=== PATIENT | male | born 1965 | race African-American/Black ===

== ENCOUNTER 2016-11-03 13:09 | Inpatient (IN) | payer OTHER ==
[2016-11-03 14:22] VITALS: BMI 23.6
--- NOTE | 2016-11-03 15:18 | HP ---
CIWA Score - CIWA Score Nausea/Vomitin Muscle Tremors: 3 Anxiety: 3 Agitation: 3 Paroxysmal Sweats: 2 Orientation: 0-Oriented Tacttile Disturbances: 2-Mild Itch/Numbness/Burn Auditory Disturbances: 2-Mild Harshness/Frighten Visual Disturbances: 2-Mild Sensitivity Headache: 2-Mild CIWA-Ar Total Score: 22 Admission ROS BHS - HPI Chief Complaint: katherine here to stop drinking alcohol,cocaine and marijuana Allergies/Adverse Reactions: Allergies Allergy/AdvReac Type Severity Reaction Status Date / Time No Known Allergies Allergy Verified 11/03/16 15:18 History of Present Illness: this 50 years old male with alcohol,cocaine and marijuana dependence,seeking detox,last tretment [address] [facility] syncope alcohol related black pigmented mole of right leg for 1 year nicotine dependence longest period of sobriety 2 years Exam Limitations: No Limitations - Ebola screening Have you traveled outside of the country in the last 21 days: No Have you had contact with anyone from an Ebola affected area: No Have you been sick,other than usual withdrawal symptoms: No Do you have a fever: No - Review of Systems Constitutional: Loss of Appetite, Malaise, Night Sweats, Changes in sleep, Weakness, Unintentional Wgt. Loss EENT: reports: Nose Congestion Respiratory: reports: No Symptoms reported Cardiac: reports: Palpitations GI: reports: Diarrhea, Nausea, Vomiting, Abdominal cramping : reports: No Symptoms Reported Musculoskeletal: reports: Back Pain, Muscle Pain Integumentary: reports: Dryness Neuro: reports: Tremors Endocrine: reports: No Symptoms Reported Hematology: reports: No Symptoms Reported Psychiatric: reports: No Sypmtoms Reported, Judgement Intact, Mood/Affect Appropiate, Orientated x3 Patient History - Patient Medical History Hx Anemia: No Hx Asthma: No Hx Chronic Obstructive Pulmonary Disease (COPD): No Hx Cancer: No Hx Cardiac Disorders: No Hx Congestive Heart Failure: No Hx Hypertension: No Hx Hypercholesterolemia: No Hx Pacemaker: No HX Cerebrovascular Accident: No Hx Seizures: No Hx Dementia: No Hx Diabetes: No Hx Gastrointestinal Disorders: No Hx Liver Disease: No Hx Genitourinary Disorders: No Hx Sexually Transmitted Disorders: No Hx Renal Disease (ESRD): No Hx Thyroid Disease: No Hx Human Immunodeficiency Virus (HIV): No (last 05/15 negative) Hx Hepatitis C: No Hx Depression: No Hx Suicide Attempt: No Hx Bipolar Disorder: No Hx Schizophrenia: No Other Medical History: no suicidal,o homicidal - Patient Surgical History Past Surgical History: No - PPD History Previous Implant?: Yes Documented Results: Negative w/o proof Implanted On Prior R Admission?: No PPD to be Administered?: Yes - Smoking Cessation Smoking history: Current every day smoker Aproximately how many cigarettes per day: 6 Hx Chewing Tobacco Use: No Initiated information on smoking cessation: Yes 'Breaking Loose' booklet given: 11/03/16 - Substance & Tx. History Hx Alcohol Use: Yes Hx Substance Use: Yes Substance Use Type: Alcohol, Cocaine, Marijuana Hx Substance Use Treatment: Yes ([facility]) - Substances Abused Alcohol Route: Oral Frequency: Daily Amount used: 1/2 pint of phillip/3 of 16 ozs of beer Age of first use: 21 Date of Last Use: 11/03/16 Cocaine Route: Smoking Frequency: Daily Amount used: 100$ Age of first use: 18 Date of Last Use: 11/02/16 Marijuana/Hashish Route: Smoking Frequency: Daily Amount used: 100$ Age of first use: 10 Date of Last Use: 11/03/16 Family Disease History - Family Disease History Family History: Denies Admission Physical Exam S - Vital Signs Vital Signs: Vital Signs - 24 hr 11/03/16 14:17 Temperature 96.4 F L Pulse Rate 79 Respiratory 20 Rate Blood Pressure 124/68 - Physical General Appearance: Yes: Moderate Distress, Irritable, Sweating, Anxious HEENTM: Yes: Hearing grossly Normal, Normal ENT Inspection, Pharynx Normal Respiratory: Yes: Lungs Clear, No Respiratory Distress Neck: Yes: Within Normal Limits, Supple, Trachea in good position Breast: Yes: Within Normal Limits Cardiology: Yes: Within Normal Limits, Regular Rhythm, Regular Rate, S1, S2 Abdominal: Yes: Within Normal Limits, Normal Bowel Sounds, Non Tender, Soft Genitourinary: Yes: Within Normal Limits Back: Yes: Muscle Spasm Musculoskeletal: Yes: full range of Motion, Back pain, Muscle Pain Extremities: Yes: Within Normal Limits, Normal Range of Motion, Tremors Neurological: Yes: biomedical repair technician II-XII NML intact, Fully Oriented, Alert, Motor Strength 5/5 Integumentary: Yes: Dry, Other (tinea pedis) Lymphatic: Yes: Within Normal Limits - Diagnostic (1) Alcohol dependence with uncomplicated withdrawal Current Visit: Yes Status: Acute (2) Cocaine dependence Current Visit: Yes Status: Acute (3) Cannabis dependence Current Visit: Yes Status: Acute (4) Weight loss Current Visit: Yes Status: Acute (5) Syncope Current Visit: Yes Status: Acute (6) Nicotine dependence Current Visit: Yes Status: Acute (7) Tinea pedis Current Visit: Yes Status: Acute Cleared for Admission [facility] - Detox or Rehab [facility] Level of Care: Medically Managed Detox Regimen/Protocol: Librium [facility] Breath Alcohol Content Breath Alcohol Content: 0 Urine Drug Screen - Results Drug Screen Negative: No Urine Drug Screen Results: THC-Marijuana, BREE-Cocaine
[2016-11-03] MEDS ORDERED: MAG HYDROX/AL HYDROX/SIMETH 30 ML UNIT-DOSE CUP PO PRN (15:34)
[2016-11-03] MEDS ORDERED: IBUPROFEN 400 MG TABLET (FP) PO PRN (15:34)
[2016-11-03] MEDS ORDERED: P-EPHED 60MG/TRIPROLIDI 2.5MG TABLET PO PRN (15:34)
[2016-11-03] MEDS ORDERED: MAGNESIUM HYDROX 2400MG/30ML ORAL SUSPENSION 30 ML CUP PO PRN (15:34)
[2016-11-03] MEDS ORDERED: ACETAMINOPHEN 325 MG TABLET (FP) PO PRN (15:34)
[2016-11-03] MEDS ORDERED: hydrOXYzine PAMOATE 50 MG CAPSULE (FP) PO PRN (15:34)
[2016-11-03] MEDS ORDERED: MENTHOL/PHENOL 1 EACH UD MM PRN (15:34)
[2016-11-03] MEDS ORDERED: LOPERAMIDE HCL 2 MG CAPSULE PO PRN (15:34)
[2016-11-03] MEDS ORDERED: chlordiazePOXIDE HCL 25 MG CAPSULE PO PRN (15:34)
[2016-11-03] MEDS ORDERED: guaiFENesin/D-METHORPHAN HB 10 ML UNIT-DOSE CUPS PO PRN (15:34)
[2016-11-03] MEDS ORDERED: NICOTINE POLACRILEX 2 MG GUM BUC PRN (15:34)
[2016-11-03] MEDS ORDERED: MAGNESIUM CITRATE 300 ML BOTTLE PO PRN (15:34)
[2016-11-03] MEDS ORDERED: chlordiazePOXIDE HCL 25 MG CAPSULE PO ONE (15:51)
[2016-11-03] MEDS: NICOTINE 21 MG/24 HOURS TOPICAL PATCH TD SCH (16:48)
[2016-11-03 17:26] LABS: URINE APPEARANCE CLEAR; URINE BILIRUBIN NEGATIVE (NEGATIVE); URINE BLOOD NEGATIVE (NEGATIVE); URINE COLOR YELLOW; URINE GLUCOSE (UA) NEGATIVE (NEGATIVE); URINE KETONE TRACE (NEGATIVE); URINE LEUK ESTERASE NEGATIVE (NEGATIVE); URINE NITRITE NEGATIVE (NEGATIVE); URINE PROTEIN NEGATIVE (NEGATIVE)
[2016-11-03] MEDS: chlordiazePOXIDE HCL 25 MG CAPSULE PO SCH ×2 (17:33→22:42)
[2016-11-03] MEDS: THIAMINE HCL 100 MG TABLET (FP) PO SCH (22:42)
[2016-11-04] MEDS: chlordiazePOXIDE HCL 25 MG CAPSULE PO SCH ×5 (05:36→22:03)
[2016-11-04 10:00] LABS: MCH 29.4 pg (25.7-33.7); MEAN CELL VOLUME 91.8 fl (80-96); MEAN PLT VOLUME 9.1 fl (7.5-11.1); PLATELET COUNT 265 K/MM3 (134-434); WHITE BLOOD COUNT 7.7 K/mm3 (4.0-10.0)
[2016-11-04 10:07] LABS: ALBUMIN 3.7 g/dl (3.4-5.0); ANION GAP 6 (8-16); CALCIUM 9.4 mg/dL (8.5-10.1); CO2 29 mmol/L (21-32); GLUCOSE,RANDOM 76 mg/dL (74-106); SGOT/AST 17 U/L (15-37); SGPT/ALT 20 U/L (12-78)
[2016-11-04] MEDS: PRENATAL VITAMINS W/ FOLIC ACID TABLET (FP) PO SCH (10:26)
[2016-11-04] MEDS: NICOTINE 21 MG/24 HOURS TOPICAL PATCH TD SCH (10:26)
[2016-11-04 10:28] LABS: ALK PHOS 59 U/L (45-117); BILIRUBIN,TOTAL 0.3 mg/dL (0.2-1.0); CREATININE 1.5 mg/dL (0.7-1.3); TOT PROT 7.2 g/dl (6.4-8.2)
[2016-11-04 10:48] LABS: HIV 1 & 2 AB NEGATIVE; HIV 1 AGp24 NEGATIVE
--- NOTE | 2016-11-04 11:41 | PN ---
[facility] CIWA - CIWA Score Nausea/Vomitin-No Nausea/No Vomiting Muscle Tremors: 4-Moderate,w/Arms Extend Anxiety: 4-Mod. Anxious/Guarded Agitation: 4-Moderately Restless Paroxysmal Sweats: 1-Minimal Palms Moist Orientation: 0-Oriented Tacttile Disturbances: 3-Moderate Itch/Numb/Burn Auditory Disturbances: 0-None Visual Disturbances: 0-None Headache: 0-None Present CIWA-Ar Total Score: 16 BHS Progress Note (SOAP) Subjective: DECREASED ANXIETY,SWEATS,TREMORS. Objective: 11/04/16 11:40 Vital Signs Temperature 97.3 F L 11/04/16 09:32 Pulse Rate 65 11/04/16 09:32 Respiratory Rate 18 11/04/16 09:32 Blood Pressure 125/82 11/04/16 09:32 O2 Sat by Pulse Oximetry (%) Laboratory Last Values WBC 7.7 K/mm3 (4.0-10.0) 11/04/16 07:40 RBC 4.14 M/mm3 (4.00-5.60) 11/04/16 07:40 Hgb 12.2 GM/dL (11.7-16.9) 11/04/16 07:40 Hct 38.0 % (35.4-49) 11/04/16 07:40 MCV 91.8 fl (80-96) 11/04/16 07:40 MCH 29.4 pg (25.7-33.7) 11/04/16 07:40 MCHC 32.0 g/dl (32.0-35.9) 11/04/16 07:40 RDW 14.0 % (11.9-15.9) 11/04/16 07:40 Plt Count 265 K/MM3 (134-434) 11/04/16 07:40 MPV 9.1 fl (7.5-11.1) 11/04/16 07:40 Sodium 142 mmol/L (136-145) 11/04/16 07:40 Potassium 4.2 mmol/L (3.5-5.1) 11/04/16 07:40 Chloride 107 mmol/L (98-107) 11/04/16 07:40 Carbon Dioxide 29 mmol/L (21-32) 11/04/16 07:40 Anion Gap 6 (8-16) L 11/04/16 07:40 BUN 17 mg/dL (7-18) 11/04/16 07:40 Creatinine 1.5 mg/dL (0.7-1.3) H 11/04/16 07:40 Creat Clearance w eGFR 49.74 (>60) 11/04/16 07:40 Random Glucose 76 mg/dL (74-106) 11/04/16 07:40 Calcium 9.4 mg/dL (8.5-10.1) 11/04/16 07:40 Total Bilirubin 0.3 mg/dL (0.2-1.0) 11/04/16 07:40 AST 17 U/L (15-37) 11/04/16 07:40 ALT 20 U/L (12-78) 11/04/16 07:40 Alkaline Phosphatase 59 U/L (45-117) 11/04/16 07:40 Total Protein 7.2 g/dl (6.4-8.2) 11/04/16 07:40 Albumin 3.7 g/dl (3.4-5.0) 11/04/16 07:40 Urine Color Yellow 11/03/16 17:06 Urine Appearance Clear 11/03/16 17:06 Urine pH 5.0 (5.0-8.0) 11/03/16 17:06 Ur Specific [place] 1.025 (1.005-1.025) 11/03/16 17:06 Urine Protein Negative (NEGATIVE) 11/03/16 17:06 Urine Glucose (UA) Negative (NEGATIVE) 11/03/16 17:06 Urine Ketones Trace (NEGATIVE) H 11/03/16 17:06 Urine Blood Negative (NEGATIVE) 11/03/16 17:06 Urine Nitrite Negative (NEGATIVE) 11/03/16 17:06 Urine Bilirubin Negative (NEGATIVE) 11/03/16 17:06 Urine Urobilinogen 2.0 mg/dL (0.2-1.0) 11/03/16 17:06 Ur Leukocyte Esterase Negative (NEGATIVE) 11/03/16 17:06 RPR Titer Nonreactive (NONREACTIVE) 11/04/16 07:40 HIV 1&2 Antibody Screen Negative 11/04/16 07:40 HIV P24 Antigen Negative 11/04/16 07:40 Assessment: 11/04/16 11:40 WITHDRAWAL SX Plan: CONTINUE DETOX
--- NOTE | 2016-11-04 14:50 | EKG ---
Test Reason : Blood Pressure : / mmHG Vent. Rate : 061 BPM Atrial Rate : 061 BPM P-R Int : 136 ms QRS Dur : 086 ms QT Int : 392 ms P-R-T Axes : 059 069 055 degrees QTc Int : 394 ms NORMAL SINUS RHYTHM MINIMAL VOLTAGE CRITERIA FOR LVH, MAY BE NORMAL VARIANT BORDERLINE ECG NO PREVIOUS ECGS AVAILABLE Confirmed by JUAN DANIEL RODRIGUEZ MD ([id number]) on 11/04/2016 2:50:39 PM Referred By: Confirmed By:JUAN DANIEL RODRIGUEZ MD
[2016-11-04] MEDS: diphenhydrAMINE HCL 50 MG CAPSULE PO PRN (22:04)
[2016-11-04] MEDS: THIAMINE HCL 100 MG TABLET (FP) PO SCH (22:04)
[2016-11-05] MEDS: diphenhydrAMINE HCL 50 MG CAPSULE PO PRN ×2 (01:14→22:03)
[2016-11-05] MEDS: chlordiazePOXIDE HCL 25 MG CAPSULE PO SCH (06:56)
[2016-11-05] MEDS: PRENATAL VITAMINS W/ FOLIC ACID TABLET (FP) PO SCH (10:58)
[2016-11-05] MEDS: NICOTINE 21 MG/24 HOURS TOPICAL PATCH TD SCH (10:58)
[2016-11-05] MEDS: chlordiazePOXIDE 5 MG CAPSULE PO SCH ×2 (11:00→17:06)
--- NOTE | 2016-11-05 11:00 | PN ---
[facility] CIWA - CIWA Score Nausea/Vomitin-No Nausea/No Vomiting Muscle Tremors: 4-Moderate,w/Arms Extend Anxiety: 5 Agitation: 5 Paroxysmal Sweats: 1-Minimal Palms Moist Orientation: 0-Oriented Tacttile Disturbances: 3-Moderate Itch/Numb/Burn Auditory Disturbances: 0-None Visual Disturbances: 0-None Headache: 0-None Present CIWA-Ar Total Score: 18 BHS Progress Note (SOAP) Subjective: ANXIETY,IRRITABILITY,AGITATIONS,SWEATS. Objective: 11/05/16 10:59 Laboratory Last Values WBC 7.7 K/mm3 (4.0-10.0) 11/04/16 07:40 RBC 4.14 M/mm3 (4.00-5.60) 11/04/16 07:40 Hgb 12.2 GM/dL (11.7-16.9) 11/04/16 07:40 Hct 38.0 % (35.4-49) 11/04/16 07:40 MCV 91.8 fl (80-96) 11/04/16 07:40 MCH 29.4 pg (25.7-33.7) 11/04/16 07:40 MCHC 32.0 g/dl (32.0-35.9) 11/04/16 07:40 RDW 14.0 % (11.9-15.9) 11/04/16 07:40 Plt Count 265 K/MM3 (134-434) 11/04/16 07:40 MPV 9.1 fl (7.5-11.1) 11/04/16 07:40 Sodium 142 mmol/L (136-145) 11/04/16 07:40 Potassium 4.2 mmol/L (3.5-5.1) 11/04/16 07:40 Chloride 107 mmol/L (98-107) 11/04/16 07:40 Carbon Dioxide 29 mmol/L (21-32) 11/04/16 07:40 Anion Gap 6 (8-16) L 11/04/16 07:40 BUN 17 mg/dL (7-18) 11/04/16 07:40 Creatinine 1.5 mg/dL (0.7-1.3) H 11/04/16 07:40 Creat Clearance w eGFR 49.74 (>60) 11/04/16 07:40 Random Glucose 76 mg/dL (74-106) 11/04/16 07:40 Calcium 9.4 mg/dL (8.5-10.1) 11/04/16 07:40 Total Bilirubin 0.3 mg/dL (0.2-1.0) 11/04/16 07:40 AST 17 U/L (15-37) 11/04/16 07:40 ALT 20 U/L (12-78) 11/04/16 07:40 Alkaline Phosphatase 59 U/L (45-117) 11/04/16 07:40 Total Protein 7.2 g/dl (6.4-8.2) 11/04/16 07:40 Albumin 3.7 g/dl (3.4-5.0) 11/04/16 07:40 Urine Color Yellow 11/03/16 17:06 Urine Appearance Clear 11/03/16 17:06 Urine pH 5.0 (5.0-8.0) 11/03/16 17:06 Ur Specific [place] 1.025 (1.005-1.025) 11/03/16 17:06 Urine Protein Negative (NEGATIVE) 11/03/16 17:06 Urine Glucose (UA) Negative (NEGATIVE) 11/03/16 17:06 Urine Ketones Trace (NEGATIVE) H 11/03/16 17:06 Urine Blood Negative (NEGATIVE) 11/03/16 17:06 Urine Nitrite Negative (NEGATIVE) 11/03/16 17:06 Urine Bilirubin Negative (NEGATIVE) 11/03/16 17:06 Urine Urobilinogen 2.0 mg/dL (0.2-1.0) 11/03/16 17:06 Ur Leukocyte Esterase Negative (NEGATIVE) 11/03/16 17:06 RPR Titer Nonreactive (NONREACTIVE) 11/04/16 07:40 HIV 1&2 Antibody Screen Negative 11/04/16 07:40 HIV P24 Antigen Negative 11/04/16 07:40 Assessment: 11/05/16 11:00 WITHDRAWAL SX Plan: CONTINUE DETOX
[2016-11-05] MEDS ORDERED: chlordiazePOXIDE 5 MG CAPSULE PO SCH (17:00)
[2016-11-05] MEDS: THIAMINE HCL 100 MG TABLET (FP) PO SCH (22:03)
[2016-11-05] MEDS: chlordiazePOXIDE HCL 10 MG CAPSULE PO SCH (22:03)
[2016-11-06] MEDS: chlordiazePOXIDE HCL 10 MG CAPSULE PO SCH ×2 (05:59→12:12)
[2016-11-06 06:19] VITALS: BP 132/89; PULSE 78; TEMP 97.2
[2016-11-06] MEDS: PRENATAL VITAMINS W/ FOLIC ACID TABLET (FP) PO SCH (12:12)
[2016-11-06] MEDS: NICOTINE 21 MG/24 HOURS TOPICAL PATCH TD SCH (12:12)
[2016-11-06] MEDS ORDERED: chlordiazePOXIDE HCL 10 MG CAPSULE PO SCH (17:00)
--- NOTE | 2016-11-06 18:18 | DS ---
[facility] Detox Discharge Summary Admission Date: 11/03/16 Discharge Date: 11/06/16 - History Present History: Alcohol Dependence, Cannabis Dependence, Cocaine Dependence Additional Comments: Detox completed. Alert o x 3. NAD. Pertinent Past History: Tinea Pedis - Physical Exam Results Vital Signs: Vital Signs Temperature 97.2 F L 11/06/16 06:18 Pulse Rate 78 11/06/16 06:18 Respiratory Rate 18 11/06/16 06:18 Blood Pressure 132/89 11/06/16 06:18 O2 Sat by Pulse Oximetry (%) Pertinent Admission Physical Exam Findings: Withdrawal sx Laboratory Last Values WBC 7.7 K/mm3 (4.0-10.0) 11/04/16 07:40 RBC 4.14 M/mm3 (4.00-5.60) 11/04/16 07:40 Hgb 12.2 GM/dL (11.7-16.9) 11/04/16 07:40 Hct 38.0 % (35.4-49) 11/04/16 07:40 MCV 91.8 fl (80-96) 11/04/16 07:40 MCH 29.4 pg (25.7-33.7) 11/04/16 07:40 MCHC 32.0 g/dl (32.0-35.9) 11/04/16 07:40 RDW 14.0 % (11.9-15.9) 11/04/16 07:40 Plt Count 265 K/MM3 (134-434) 11/04/16 07:40 MPV 9.1 fl (7.5-11.1) 11/04/16 07:40 Sodium 142 mmol/L (136-145) 11/04/16 07:40 Potassium 4.2 mmol/L (3.5-5.1) 11/04/16 07:40 Chloride 107 mmol/L (98-107) 11/04/16 07:40 Carbon Dioxide 29 mmol/L (21-32) 11/04/16 07:40 Anion Gap 6 (8-16) L 11/04/16 07:40 BUN 17 mg/dL (7-18) 11/04/16 07:40 Creatinine 1.5 mg/dL (0.7-1.3) H 11/04/16 07:40 Creat Clearance w eGFR 49.74 (>60) 11/04/16 07:40 Random Glucose 76 mg/dL (74-106) 11/04/16 07:40 Calcium 9.4 mg/dL (8.5-10.1) 11/04/16 07:40 Total Bilirubin 0.3 mg/dL (0.2-1.0) 11/04/16 07:40 AST 17 U/L (15-37) 11/04/16 07:40 ALT 20 U/L (12-78) 11/04/16 07:40 Alkaline Phosphatase 59 U/L (45-117) 11/04/16 07:40 Total Protein 7.2 g/dl (6.4-8.2) 11/04/16 07:40 Albumin 3.7 g/dl (3.4-5.0) 11/04/16 07:40 Urine Color Yellow 11/03/16 17:06 Urine Appearance Clear 11/03/16 17:06 Urine pH 5.0 (5.0-8.0) 11/03/16 17:06 Ur Specific [place] 1.025 (1.005-1.025) 11/03/16 17:06 Urine Protein Negative (NEGATIVE) 11/03/16 17:06 Urine Glucose (UA) Negative (NEGATIVE) 11/03/16 17:06 Urine Ketones Trace (NEGATIVE) H 11/03/16 17:06 Urine Blood Negative (NEGATIVE) 11/03/16 17:06 Urine Nitrite Negative (NEGATIVE) 11/03/16 17:06 Urine Bilirubin Negative (NEGATIVE) 11/03/16 17:06 Urine Urobilinogen 2.0 mg/dL (0.2-1.0) 11/03/16 17:06 Ur Leukocyte Esterase Negative (NEGATIVE) 11/03/16 17:06 RPR Titer Nonreactive (NONREACTIVE) 11/04/16 07:40 HIV 1&2 Antibody Screen Negative 11/04/16 07:40 HIV P24 Antigen Negative 11/04/16 07:40 - Treatment Hospital Course: Detox Protocol Followed, Detoxed Safely, Responded well, Discharged Condition Good, Rehab Referral Accepted Patient has Accepted a Rehab Referral to: [place] [facility] - Medication Discharge Medications: Ambulatory Orders NK [No Known Home Medication] 11/03/16 - Diagnosis (1) Alcohol dependence with uncomplicated withdrawal Status: Acute (2) Cannabis dependence Status: Acute (3) Cocaine dependence Status: Acute (4) Nicotine dependence Status: Acute Qualifiers: Nicotine product type: cigarettes Substance use status: in withdrawal Qualified Code(s): F17.213 - Nicotine dependence, cigarettes, with withdrawal - AMA Did Patient Leave Against Medical Advice: No
== END 2016-11-06 08:35 | disposition home or self-care (01) | DRG 774 ==
LOC: YASAS 13:09 → Y3N 15:45
PROVIDERS: ADMIT Internal Medicine; ATTEND Internal Medicine
PROC: HZ2ZZZZ Detoxification Services for Substance Abuse Treatment (ICD-10-PCS; principal; 2016-11-03)
DX: F10.230 Alcohol dependence with withdrawal, uncomplicated (principal); F14.20 Cocaine dependence, uncomplicated; F12.20 Cannabis dependence, uncomplicated; F17.213 Nicotine dependence, cigarettes, with withdrawal; B35.3 Tinea pedis; Z86.79 Personal history of other diseases of the circulatory system; Z87.898 Personal history of other specified conditions
CPT/HCPCS: 36415; 80053; 81003; 85027; 86593; 87389; 93005; 93010

== ENCOUNTER 2017-05-31 11:38 | Inpatient (IN) | payer OTHER ==
[2017-05-31 15:13] VITALS: BMI 21.8
--- NOTE | 2017-05-31 16:18 | HP ---
CIWA Score - CIWA Score Nausea/Vomitin-No Nausea/No Vomiting Muscle Tremors: 4-Moderate,w/Arms Extend Anxiety: 4-Mod. Anxious/Guarded Agitation: 3 Paroxysmal Sweats: 1-Minimal Palms Moist Orientation: 0-Oriented Tacttile Disturbances: 3-Moderate Itch/Numb/Burn Auditory Disturbances: 0-None Visual Disturbances: 0-None Headache: 0-None Present CIWA-Ar Total Score: 15 Admission ROS S - HPI Chief Complaint: ALCOHOL WITHDRAWAL SX Allergies/Adverse Reactions: Allergies Allergy/AdvReac Type Severity Reaction Status Date / Time No Known Allergies Allergy Verified 05/31/17 15:34 History of Present Illness: 51 Y/O AA/MALE WITH A HX OF ALCOHOL,COCAINE AND MARIJUANA DEPENDENCE SEEKING DETOX [place]. Exam Limitations: No Limitations - Ebola screening Have you traveled outside of the country in the last 21 days: No Have you had contact with anyone from an Ebola affected area: No Have you been sick,other than usual withdrawal symptoms: No Do you have a fever: No - Review of Systems Constitutional: Chills, Loss of Appetite, Night Sweats, Changes in sleep, Unintentional Wgt. Loss EENT: reports: Blurred Vision, Tearing, Nose Congestion, Dental Problems ( MISSING TEETH. LOST BOTH BRIDGES.) Respiratory: reports: No Symptoms reported Cardiac: reports: No Symptoms Reported GI: reports: Diarrhea, Nausea, Poor Appetite, Poor Fluid Intake, Vomiting, Indigestion, Abdominal cramping : reports: No Symptoms Reported Musculoskeletal: reports: Muscle Pain Integumentary: reports: Rash (CHRONIC DRY,SCALY FEET. HX ATHLETES FOOT) Neuro: reports: Tremors, Unsteady Gait Endocrine: reports: No Symptoms Reported Hematology: reports: No Symptoms Reported Psychiatric: reports: Orientated x3, Anxious Other Systems: Reviewed and Negative Patient History - Patient Medical History Hx Anemia: No Hx Asthma: No Hx Chronic Obstructive Pulmonary Disease (COPD): No Hx Cancer: No Hx Cardiac Disorders: No Hx Congestive Heart Failure: No Hx Hypertension: No Hx Hypercholesterolemia: No Hx Pacemaker: No HX Cerebrovascular Accident: No Hx Seizures: No Hx Dementia: No Hx Diabetes: No Hx Gastrointestinal Disorders: No Hx Liver Disease: No Hx Genitourinary Disorders: No Hx Sexually Transmitted Disorders: No Hx Renal Disease (ESRD): No Hx Thyroid Disease: No Hx Human Immunodeficiency Virus (HIV): No (last 05/15 negative) Hx Hepatitis C: No Hx Depression: No Hx Suicide Attempt: No (DENIES PAST OR PRESENT S/I) Hx Bipolar Disorder: No Hx Schizophrenia: No - Patient Surgical History Past Surgical History: No Hx Neurologic Surgery: No Hx Cataract Extraction: No Hx Cardiac Surgery: No Hx Lung Surgery: No Hx Breast Surgery: No Hx Breast Biopsy: No Hx Abdominal Surgery: No Hx Appendectomy: No Hx Cholecystectomy: No Hx Genitourinary Surgery: No Hx Orthopedic Surgery: No Anesthesia Reaction: No - PPD History Previous Implant?: Yes Documented Results: Negative w/proof Implanted On Prior R Admission?: Yes Date: 11/05/16 Results: 0 mm PPD to be Administered?: No - Reproductive History Patient is a Female of Child Bearing Age (11 -55 yrs old): No (MALE) - Smoking Cessation Smoking history: Current every day smoker Have you smoked in the past 12 months: Yes Aproximately how many cigarettes per day: 8 Hx Chewing Tobacco Use: No Initiated information on smoking cessation: Yes 'Breaking Loose' booklet given: 05/31/17 - Substance & Tx. History Hx Alcohol Use: Yes (RUM/BEER) Hx Substance Use: Yes (COCAINE/MARIJUANA) - Substances Abused Alcohol Route: Oral Frequency: Daily Amount used: 1 PINT RUM Age of first use: 20 Date of Last Use: 05/31/17 Cocaine Route: Smoking Frequency: Daily Amount used: $50-75 Age of first use: 28 Date of Last Use: 05/31/17 Marijuana/Hashish Route: Smoking Frequency: 3-6 times per week Amount used: $10 Age of first use: 16 Date of Last Use: 05/17/17 Family Disease History - Family Disease History Family Disease History: Heart Disease: Mother, Other: Father (HTN), Sister (HTN) Admission Physical Exam BHS - Vital Signs Vital Signs: Vital Signs - 24 hr 05/31/17 15:12 Temperature 97.1 F L Pulse Rate 73 Respiratory 20 Rate Blood Pressure 118/70 - Physical General Appearance: Yes: Moderate Distress, Irritable, Anxious HEENTM: Yes: EOMI, Normocephalic, ALONZO, Pharynx Normal Respiratory: Yes: Chest Non-Tender, Lungs Clear, Normal Breath Sounds, No Respiratory Distress Neck: Yes: No masses,lesions,Nodules, Supple, Trachea in good position Breast: Yes: Breast Exam Deferred Cardiology: Yes: Regular Rhythm, Regular Rate, S1, S2 Abdominal: Yes: Normal Bowel Sounds, Non Tender, Flat Genitourinary: Yes: Other (N/C) Back: Yes: Within Normal Limits Musculoskeletal: Yes: full range of Motion, Gait Steady Extremities: Yes: Normal Range of Motion, Non-Tender Neurological: Yes: health data administrator II-XII NML intact, Fully Oriented, Alert, Motor Strength 5/5 Integumentary: Yes: Dry, Warm, Rash (BOTH FEET DRY,SCALY) Lymphatic: Yes: Within Normal Limits - Diagnostic (1) Alcohol dependence with uncomplicated withdrawal Current Visit: Yes Status: Acute (2) Cannabis dependence Current Visit: Yes Status: Acute (3) Cocaine dependence Current Visit: Yes Status: Acute Qualifiers: Substance use status: uncomplicated Qualified Code(s): F14.20 - Cocaine dependence, uncomplicated (4) Nicotine dependence Current Visit: No Status: Acute Qualifiers: Nicotine product type: cigarettes Substance use status: in withdrawal Qualified Code(s): F17.213 - Nicotine dependence, cigarettes, with withdrawal (5) Weight loss Current Visit: Yes Status: Acute (6) Tinea pedis Current Visit: Yes Status: Acute Qualifiers: Laterality: bilateral Qualified Code(s): B35.3 - Tinea pedis Cleared for Admission [facility] - Detox or Rehab [facility] Level of Care: Medically Managed Detox Regimen/Protocol: Librium [facility] Breath Alcohol Content Breath Alcohol Content: 0.032 Urine Drug Screen - Results Drug Screen Negative: No Urine Drug Screen Results: THC-Marijuana, BREE-Cocaine
[2017-05-31] MEDS ORDERED: MENTHOL/PHENOL 1 EACH UD MM PRN (16:25)
[2017-05-31] MEDS ORDERED: IBUPROFEN 400 MG TABLET (FP) PO PRN (16:25)
[2017-05-31] MEDS ORDERED: guaiFENesin/D-METHORPHAN HB 10 ML UNIT-DOSE CUPS PO PRN (16:25)
[2017-05-31] MEDS ORDERED: ACETAMINOPHEN 325 MG TABLET (FP) PO PRN (16:25)
[2017-05-31] MEDS ORDERED: MAG HYDROX/AL HYDROX/SIMETH 30 ML UNIT-DOSE CUP PO PRN (16:25)
[2017-05-31] MEDS ORDERED: P-EPHED 60MG/TRIPROLIDI 2.5MG TABLET PO PRN (16:25)
[2017-05-31] MEDS ORDERED: chlordiazePOXIDE HCL 25 MG CAPSULE PO PRN (16:25)
[2017-05-31] MEDS ORDERED: LOPERAMIDE HCL 2 MG CAPSULE PO PRN (16:25)
[2017-05-31] MEDS ORDERED: NICOTINE POLACRILEX 2 MG GUM BC PRN (16:25)
[2017-05-31] MEDS ORDERED: MAGNESIUM HYDROX 2400MG/30ML ORAL SUSPENSION 30 ML CUP PO PRN (16:25)
[2017-05-31] MEDS ORDERED: hydrOXYzine PAMOATE 50 MG CAPSULE (FP) PO PRN (16:25)
[2017-05-31] MEDS ORDERED: MAGNESIUM CITRATE 300 ML BOTTLE PO PRN (16:25)
[2017-05-31] MEDS ORDERED: chlordiazePOXIDE HCL 25 MG CAPSULE PO ONE (17:30)
[2017-05-31] MEDS: NICOTINE 14 MG/24 HOURS TOPICAL PATCH TD SCH (18:09)
[2017-05-31 22:41] LABS: URINE APPEARANCE CLEAR; URINE BILIRUBIN NEGATIVE (NEGATIVE); URINE BLOOD NEGATIVE (NEGATIVE); URINE COLOR YELLOW; URINE GLUCOSE (UA) NEGATIVE (NEGATIVE); URINE KETONE NEGATIVE (NEGATIVE); URINE LEUK ESTERASE NEGATIVE (NEGATIVE); URINE NITRITE NEGATIVE (NEGATIVE)
[2017-05-31 22:54] LABS: URINE PROTEIN 2+ (NEGATIVE)
[2017-05-31 23:01] LABS: GRANULAR CASTS 1 /lpf; URINE HYALINE CAST 1 /lpf; URINE MUCUS RARE
[2017-05-31] MEDS: chlordiazePOXIDE HCL 25 MG CAPSULE PO SCH ×2 (23:25→23:30)
[2017-05-31] MEDS: THIAMINE HCL 100 MG TABLET (FP) PO SCH (23:26)
[2017-06-01] MEDS: chlordiazePOXIDE HCL 25 MG CAPSULE PO SCH ×4 (05:59→22:14)
[2017-06-01 10:28] LABS: CHLORIDE 105 mmol/L (98-107); POTASSIUM 3.8 mmol/L (3.5-5.1); SODIUM 140 mmol/L (136-145)
[2017-06-01 10:30] LABS: HEMATOCRIT 35.8 % (35.4-49); HEMOGLOBIN 11.8 GM/dL (11.7-16.9); MCH 29.5 pg (25.7-33.7); MEAN CELL VOLUME 89.6 fl (80-96); MEAN PLT VOLUME 9.1 fl (7.5-11.1); PLATELET COUNT 265 K/MM3 (134-434); RBC 3.99 M/mm3 (4.00-5.60); RDW 13.7 % (11.9-15.9); WHITE BLOOD COUNT 7.9 K/mm3 (4.0-10.0)
[2017-06-01] MEDS: NICOTINE 14 MG/24 HOURS TOPICAL PATCH TD SCH (10:35)
[2017-06-01] MEDS: PRENATAL VITAMINS W/ FOLIC ACID TABLET (FP) PO SCH (10:35)
[2017-06-01 10:54] LABS: ALBUMIN 4.3 g/dl (3.4-5.0); ALK PHOS 67 U/L (45-117); ANION GAP 11 (8-16); BILIRUBIN,TOTAL 0.4 mg/dL (0.2-1.0); BLOOD UREA NITROGEN 15 mg/dL (7-18); CALCIUM 8.9 mg/dL (8.5-10.1); CO2 24 mmol/L (21-32); CREATININE 1.6 mg/dL (0.7-1.3); GLUCOSE,RANDOM 83 mg/dL (74-106); SGOT/AST 12 U/L (15-37); SGPT/ALT 14 U/L (12-78); TOT PROT 8.1 g/dl (6.4-8.2)
--- NOTE | 2017-06-01 12:05 | EKG ---
Test Reason : Blood Pressure : / mmHG Vent. Rate : 061 BPM Atrial Rate : 061 BPM P-R Int : 144 ms QRS Dur : 082 ms QT Int : 400 ms P-R-T Axes : 074 074 061 degrees QTc Int : 402 ms NORMAL SINUS RHYTHM WITH SINUS ARRHYTHMIA VOLTAGE CRITERIA FOR LEFT VENTRICULAR HYPERTROPHY ABNORMAL ECG WHEN COMPARED WITH ECG OF 03-NOV-2016 15:47, NO SIGNIFICANT CHANGE WAS FOUND Confirmed by MD Debra, Abe ([id number]) on 06/01/2017 12:04:50 PM Referred By: Confirmed By:Abe Richardson MD
--- NOTE | 2017-06-01 12:45 | PN ---
[facility] CIWA - CIWA Score Nausea/Vomitin-No Nausea/No Vomiting Muscle Tremors: 2 Anxiety: 4-Mod. Anxious/Guarded Agitation: 1-Slight > Activity Paroxysmal Sweats: 3 Orientation: 0-Oriented Tacttile Disturbances: 2-Mild Itch/Numbness/Burn Auditory Disturbances: 0-None Visual Disturbances: 3-Moderate Sensitivity Headache: 0-None Present CIWA-Ar Total Score: 15 BHS Progress Note (SOAP) Subjective: Stomach Cramping, Fatigue, Anxious, Sweating, Tremors. Objective: PATIENT A & O X 2 (UNCERTAIN ABOUT CURRENT DAY/ DATE). OBSERVED AMBULATING ON UNIT. NO ACUTE DISTRESS. 06/01/17 12:46 Vital Signs Temperature 95.4 F L 06/01/17 09:09 Pulse Rate 67 06/01/17 09:09 Respiratory Rate 18 06/01/17 09:09 Blood Pressure 123/77 06/01/17 09:09 O2 Sat by Pulse Oximetry (%) Laboratory Tests 05/31/17 06/01/17 06/01/17 Unknown 05:45 05:45 WBC 7.9 RBC 3.99 L Hgb 11.8 Hct 35.8 MCV 89.6 MCH 29.5 MCHC 33.0 RDW 13.7 Plt Count 265 MPV 9.1 Sodium 140 Potassium 3.8 Chloride 105 Carbon Dioxide 24 Anion Gap 11 BUN 15 Creatinine 1.6 H Creat Clearance w eGFR 45.98 Random Glucose 83 Calcium 8.9 Total Bilirubin 0.4 D AST 12 L D ALT 14 D Alkaline Phosphatase 67 Total Protein 8.1 Albumin 4.3 Urine Color Yellow Urine Appearance Clear Urine pH 5.0 Ur Specific [place] 1.024 Urine Protein 2+ H Urine Glucose (UA) Negative Urine Ketones Negative Urine Blood Negative Urine Nitrite Negative Urine Bilirubin Negative Urine Urobilinogen 2.0 Ur Leukocyte Esterase Negative Urine WBC (Auto) <1 Urine RBC (Auto) None Hyaline Casts 1 Granular Casts 1 Urine Mucus Rare LABS NOTED. HIV AB, RPR RESULTS PENDING. 06/01/17 12:49 Assessment: 06/01/17 12:47 WITHDRAWAL SYMPTOMS. Plan: CONTINUE DETOX. D/C MAGNESIUM-CONTAINING MEDS FOR ABNORMAL ADMISSION RENAL LAB VALUES.
[2017-06-01] MEDS ORDERED: MAGNESIUM HYDROX 2400MG/30ML ORAL SUSPENSION 30 ML CUP PO PRN (18:09)
[2017-06-01] MEDS: THIAMINE HCL 100 MG TABLET (FP) PO SCH (22:14)
[2017-06-02] MEDS: chlordiazePOXIDE HCL 25 MG CAPSULE PO SCH ×3 (05:48→18:13)
[2017-06-02] MEDS: PRENATAL VITAMINS W/ FOLIC ACID TABLET (FP) PO SCH (10:28)
[2017-06-02] MEDS: NICOTINE 14 MG/24 HOURS TOPICAL PATCH TD SCH (10:28)
--- NOTE | 2017-06-02 12:35 | PN ---
[facility] CIWA - CIWA Score Nausea/Vomitin-No Nausea/No Vomiting Muscle Tremors: 3 Anxiety: 4-Mod. Anxious/Guarded Agitation: 2 Paroxysmal Sweats: 2 Orientation: 0-Oriented Tacttile Disturbances: 1-Very Mild Itch/Numbness Auditory Disturbances: 0-None Visual Disturbances: 2-Mild Sensitivity Headache: 0-None Present CIWA-Ar Total Score: 14 BHS Progress Note (SOAP) Subjective: Fatigue, Sweating, Tremors, Interrupted Sleep. Objective: PATIENT A & O X 3. NO ACUTE DISTRESS. 06/02/17 12:33 Vital Signs Temperature 96.7 F L 06/02/17 09:12 Pulse Rate 75 06/02/17 09:12 Respiratory Rate 16 06/02/17 09:12 Blood Pressure 110/75 06/02/17 09:12 O2 Sat by Pulse Oximetry (%) Laboratory Tests 05/31/17 06/01/17 06/01/17 Unknown 05:45 05:45 WBC 7.9 RBC 3.99 L Hgb 11.8 Hct 35.8 MCV 89.6 MCH 29.5 MCHC 33.0 RDW 13.7 Plt Count 265 MPV 9.1 Sodium 140 Potassium 3.8 Chloride 105 Carbon Dioxide 24 Anion Gap 11 BUN 15 Creatinine 1.6 H Creat Clearance w eGFR 45.98 Random Glucose 83 Calcium 8.9 Total Bilirubin 0.4 D AST 12 L D ALT 14 D Alkaline Phosphatase 67 Total Protein 8.1 Albumin 4.3 Urine Color Yellow Urine Appearance Clear Urine pH 5.0 Ur Specific Orange 1.024 Urine Protein 2+ H Urine Glucose (UA) Negative Urine Ketones Negative Urine Blood Negative Urine Nitrite Negative Urine Bilirubin Negative Urine Urobilinogen 2.0 Ur Leukocyte Esterase Negative Urine WBC (Auto) <1 Urine RBC (Auto) None Hyaline Casts 1 Granular Casts 1 Urine Mucus Rare RPR Titer HIV 1&2 Antibody Screen HIV P24 Antigen 06/01/17 06/01/17 05:45 05:45 WBC RBC Hgb Hct MCV MCH MCHC RDW Plt Count MPV Sodium Potassium Chloride Carbon Dioxide Anion Gap BUN Creatinine Creat Clearance w eGFR Random Glucose Calcium Total Bilirubin AST ALT Alkaline Phosphatase Total Protein Albumin Urine Color Urine Appearance Urine pH Ur Specific Orange Urine Protein Urine Glucose (UA) Urine Ketones Urine Blood Urine Nitrite Urine Bilirubin Urine Urobilinogen Ur Leukocyte Esterase Urine WBC (Auto) Urine RBC (Auto) Hyaline Casts Granular Casts Urine Mucus RPR Titer Nonreactive HIV 1&2 Antibody Screen Negative HIV P24 Antigen Negative LABS NOTED. Assessment: 06/02/17 12:33 WITHDRAWAL SYMPTOMS. Plan: CONTINUE DETOX. INCREASE DAILY PO FLUID INTAKE.
--- NOTE | 2017-06-02 13:36 | PN ---
S Progress Note Note: Patient reporting lingering constipation. Senna, Colace PO BID ordered. Magnesium containing meds. (MOM, Mylanta) not recommended at this time due to admission renal lab abnormalities. Yary Beatty NP
[2017-06-02] MEDS: DOCUSATE SODIUM 100 MG CAPSULE (FP) PO SCH ×2 (14:42→22:43)
[2017-06-02] MEDS: SENNOSIDES 8.6MG TABLET (FP) PO SCH ×2 (14:42→22:44)
[2017-06-02] MEDS: chlordiazePOXIDE 5 MG CAPSULE PO SCH (22:43)
[2017-06-02] MEDS: THIAMINE HCL 100 MG TABLET (FP) PO SCH (22:44)
[2017-06-03] MEDS: chlordiazePOXIDE 5 MG CAPSULE PO SCH (05:40)
[2017-06-03 09:31] VITALS: BP 123/85; PULSE 79; TEMP 98.4
--- NOTE | 2017-06-03 12:22 | DS ---
[facility] Detox Discharge Summary Admission Date: 05/31/17 Discharge Date: 06/03/17 - History Present History: Alcohol Dependence, Cannabis Dependence, Cocaine Dependence Additional Comments: PATIENT DENIES ANY CURRENT DETOX SYMPTOMS AND REPORTS THAT HE FEELS WELL OVERALL. PATIENT WILL FOLLOW-UP AND APPLY FOR ADMISSION AT [facility] ([place], [place] OR AT [facility] ([place], [place] FOR AFTERCARE IN THE NEXT DAY OR TWO. PATIENT WAS DISCHARGED FROM DETOX UNIT IN STABLE MEDICAL CONDITION. Pertinent Past History: Nicotine Dependence, Weight Loss, Tinea Pedis. - Physical Exam Results Vital Signs: Vital Signs Temperature 98.4 F 06/03/17 09:31 Pulse Rate 79 06/03/17 09:31 Respiratory Rate 18 06/03/17 09:31 Blood Pressure 123/85 06/03/17 09:31 O2 Sat by Pulse Oximetry (%) Pertinent Admission Physical Exam Findings: WITHDRAWAL SYMPTOMS. Laboratory Tests 05/31/17 06/01/17 06/01/17 Unknown 05:45 05:45 WBC 7.9 RBC 3.99 L Hgb 11.8 Hct 35.8 MCV 89.6 MCH 29.5 MCHC 33.0 RDW 13.7 Plt Count 265 MPV 9.1 Sodium 140 Potassium 3.8 Chloride 105 Carbon Dioxide 24 Anion Gap 11 BUN 15 Creatinine 1.6 H Creat Clearance w eGFR 45.98 Random Glucose 83 Calcium 8.9 Total Bilirubin 0.4 D AST 12 L D ALT 14 D Alkaline Phosphatase 67 Total Protein 8.1 Albumin 4.3 Urine Color Yellow Urine Appearance Clear Urine pH 5.0 Ur Specific [place] 1.024 Urine Protein 2+ H Urine Glucose (UA) Negative Urine Ketones Negative Urine Blood Negative Urine Nitrite Negative Urine Bilirubin Negative Urine Urobilinogen 2.0 Ur Leukocyte Esterase Negative Urine WBC (Auto) <1 Urine RBC (Auto) None Hyaline Casts 1 Granular Casts 1 Urine Mucus Rare RPR Titer HIV 1&2 Antibody Screen HIV P24 Antigen 06/01/17 06/01/17 05:45 05:45 WBC RBC Hgb Hct MCV MCH MCHC RDW Plt Count MPV Sodium Potassium Chloride Carbon Dioxide Anion Gap BUN Creatinine Creat Clearance w eGFR Random Glucose Calcium Total Bilirubin AST ALT Alkaline Phosphatase Total Protein Albumin Urine Color Urine Appearance Urine pH Ur Specific [place] Urine Protein Urine Glucose (UA) Urine Ketones Urine Blood Urine Nitrite Urine Bilirubin Urine Urobilinogen Ur Leukocyte Esterase Urine WBC (Auto) Urine RBC (Auto) Hyaline Casts Granular Casts Urine Mucus RPR Titer Nonreactive HIV 1&2 Antibody Screen Negative HIV P24 Antigen Negative LABS NOTED. - Treatment Hospital Course: Detox Protocol Followed, Detoxed Safely, Responded well, Discharged Condition Good Patient has Accepted a Rehab Referral to: [facility] ([place] [facility]). - Medication Discharge Medications: Ambulatory Orders NK [No Known Home Medication] 11/03/16 - Diagnosis (1) Alcohol dependence with uncomplicated withdrawal Status: Acute (2) Cannabis dependence Status: Acute (3) Cocaine dependence Status: Acute Qualifiers: Substance use status: uncomplicated Qualified Code(s): F14.20 - Cocaine dependence, uncomplicated (4) Tinea pedis Status: Acute Qualifiers: Laterality: bilateral Qualified Code(s): B35.3 - Tinea pedis (5) Weight loss Status: Acute (6) Nicotine dependence Status: Acute Qualifiers: Nicotine product type: cigarettes Substance use status: in withdrawal Qualified Code(s): F17.213 - Nicotine dependence, cigarettes, with withdrawal - AMA Did Patient Leave Against Medical Advice: No
[2017-06-03] MEDS ORDERED: chlordiazePOXIDE HCL 10 MG CAPSULE PO SCH (23:00)
== END 2017-06-03 10:12 | disposition home or self-care (01) | DRG 774 ==
LOC: YASAS 11:38 → Y3N 16:22
PROVIDERS: ADMIT Internal Medicine; ATTEND Internal Medicine
PROC: HZ2ZZZZ Detoxification Services for Substance Abuse Treatment (ICD-10-PCS; principal; 2017-05-31)
DX: F10.230 Alcohol dependence with withdrawal, uncomplicated (principal); F14.20 Cocaine dependence, uncomplicated; F12.20 Cannabis dependence, uncomplicated; F17.213 Nicotine dependence, cigarettes, with withdrawal; B35.3 Tinea pedis; Z87.898 Personal history of other specified conditions
CPT/HCPCS: 36415; 80053; 81003; 81015; 85027; 86593; 87389; 93005; 93010

== ENCOUNTER 2020-07-05 18:20 | Inpatient (IN) | payer OTHER ==
[2020-07-05 19:14] VITALS: BMI 24.0
[2020-07-05] MEDS ORDERED: IBUPROFEN 400 MG TABLET (FP) PO PRN (21:44)
[2020-07-05] MEDS ORDERED: METHOCARBAMOL 500 MG TABLET PO PRN (21:44)
[2020-07-05] MEDS ORDERED: BISMUTH SUBSALICYLATE 524 MG/30 ML UD PO PRN (21:44)
[2020-07-05] MEDS ORDERED: MENTHOL/PHENOL 1 EACH UD MM PRN (21:44)
[2020-07-05] MEDS ORDERED: MAG HYDROX/AL HYDROX/SIMETH 30 ML UNIT-DOSE CUP PO PRN (21:44)
[2020-07-05] MEDS ORDERED: MAGNESIUM CITRATE 300 ML BOTTLE PO PRN (21:44)
[2020-07-05] MEDS ORDERED: ONDANSETRON *ODT* 4 MG TABLET SL PRN (21:44)
[2020-07-05] MEDS ORDERED: ACETAMINOPHEN 325 MG TABLET (FP) PO PRN ×2 (21:44)
[2020-07-05] MEDS ORDERED: NICOTINE POLACRILEX 2 MG GUM BUC PRN (21:44)
[2020-07-05] MEDS ORDERED: MAGNESIUM HYDROX 2400MG/30ML ORAL SUSPENSION 30 ML CUP PO PRN (21:44)
[2020-07-06] MEDS ORDERED: chlordiazePOXIDE HCL 25 MG CAPSULE PO PRN (00:40)
[2020-07-06] MEDS ORDERED: cloNIDine HCL 0.1 MG TABLET PO PRN (00:40)
[2020-07-06] MEDS ORDERED: METHADONE HCL 10 MG TABLET (FOR DETOX USE ONLY) PO ONE (00:40)
[2020-07-06] MEDS: THIAMINE HCL 100 MG TABLET (FP) PO SCH ×2 (01:31→22:45)
[2020-07-06] MEDS: MELATONIN 5 MG TABLETS PO SCH ×2 (01:31→23:15)
[2020-07-06] MEDS: chlordiazePOXIDE HCL 25 MG CAPSULE PO SCH ×4 (06:06→22:43)
[2020-07-06] MEDS: NICOTINE 14 MG/24 HOURS TOPICAL PATCH TD SCH (10:37)
[2020-07-06] MEDS: PRENATAL VITAMINS W/ FOLIC ACID TABLET (FP) PO SCH (10:37)
[2020-07-06 13:52] LABS: HEMATOCRIT 32.3 % (35.4-49); HEMOGLOBIN 10.7 GM/dL (11.7-16.9); MCH 29.5 pg (25.7-33.7); MEAN CELL VOLUME 89.6 fl (80-96); MEAN PLT VOLUME 9.1 fl (7.5-11.1); PLATELET COUNT 239 K/MM3 (134-434); RBC 3.61 M/mm3 (4.00-5.60); RDW 13.5 % (11.9-15.9); WHITE BLOOD COUNT 8.1 K/mm3 (4.0-10.0)
[2020-07-06 13:57] LABS: ALBUMIN 3.6 g/dl (3.4-5.0); BLOOD UREA NITROGEN 17.6 mg/dL (7-18); CALCIUM 9.5 mg/dL (8.5-10.1)
[2020-07-06 14:01] LABS: CREATININE 1.3 mg/dL (0.55-1.3)
[2020-07-06 14:02] LABS: BILIRUBIN,TOTAL 0.5 mg/dL (0.2-1); TOT PROT 6.9 g/dl (6.4-8.2)
[2020-07-07] MEDS: chlordiazePOXIDE HCL 25 MG CAPSULE PO SCH ×4 (05:28→23:17)
[2020-07-07] MEDS ORDERED: METHADONE HCL 5 MG TABLET (FOR DETOX USE ONLY) ONE (09:15)
[2020-07-07] MEDS ORDERED: METHADONE HCL 10 MG TABLET (FOR DETOX USE ONLY) ONE (09:15)
[2020-07-07] MEDS ORDERED: METHADONE (DETOX) 20 MG, METHADONE (DETOX) 5 MG PO ONE (10:00)
[2020-07-07] MEDS: PRENATAL VITAMINS W/ FOLIC ACID TABLET (FP) PO SCH (10:30)
[2020-07-07] MEDS: NICOTINE 14 MG/24 HOURS TOPICAL PATCH TD SCH (10:31)
[2020-07-07] MEDS: THIAMINE HCL 100 MG TABLET (FP) PO SCH (23:19)
[2020-07-07] MEDS: MELATONIN 5 MG TABLETS PO SCH (23:19)
[2020-07-08] MEDS ORDERED: chlordiazePOXIDE HCL 10 MG CAPSULE PO PRN
[2020-07-08] MEDS: chlordiazePOXIDE HCL 10 MG CAPSULE PO SCH ×4 (06:58→23:41)
[2020-07-08] MEDS ORDERED: METHADONE HCL 10 MG TABLET (FOR DETOX USE ONLY) PO ONE (10:00)
[2020-07-08 10:06] LABS: SARS-CoV-2 NAA Not Detected (Not Detected)
[2020-07-08] MEDS: PRENATAL VITAMINS W/ FOLIC ACID TABLET (FP) PO SCH (10:35)
[2020-07-08] MEDS: NICOTINE 14 MG/24 HOURS TOPICAL PATCH TD SCH (10:35)
[2020-07-08] MEDS ORDERED: NALOXONE (NARCAN) HCL 4 MG/0.1 ML SPRAY NS ONE ×2 (15:17→15:19)
[2020-07-08] MEDS ORDERED: NALOXONE HCL 0.4 MG/ML VIAL IM ONE (15:20)
[2020-07-08] MEDS ORDERED: NALOXONE HCL 0.4 MG/ML VIAL ONE ×2 (15:20→15:23)
[2020-07-08] MEDS: THIAMINE HCL 100 MG TABLET (FP) PO SCH (23:41)
[2020-07-08] MEDS: MELATONIN 5 MG TABLETS PO SCH (23:41)
[2020-07-09] MEDS: chlordiazePOXIDE HCL 10 MG CAPSULE PO SCH ×2 (04:16→18:07)
[2020-07-09] MEDS ORDERED: METHADONE (DETOX) 10 MG, METHADONE (DETOX) 5 MG PO ONE (10:00)
[2020-07-09] MEDS ORDERED: FERROUS SO4 325 MG TABLET (FP) PO SCH (10:30)
[2020-07-09] MEDS: PRENATAL VITAMINS W/ FOLIC ACID TABLET (FP) PO SCH (12:23)
[2020-07-09] MEDS: NICOTINE 14 MG/24 HOURS TOPICAL PATCH TD SCH (12:23)
[2020-07-09] MEDS: THIAMINE HCL 100 MG TABLET (FP) PO SCH (22:39)
[2020-07-09] MEDS: MELATONIN 5 MG TABLETS PO SCH (22:39)
[2020-07-10] MEDS ORDERED: chlordiazePOXIDE HCL 10 MG CAPSULE PO ONE (05:00)
[2020-07-10] MEDS ORDERED: METHADONE HCL 10 MG TABLET (FOR DETOX USE ONLY) PO ONE (10:00)
[2020-07-10] MEDS: PRENATAL VITAMINS W/ FOLIC ACID TABLET (FP) PO SCH (10:32)
[2020-07-10] MEDS: NICOTINE 14 MG/24 HOURS TOPICAL PATCH TD SCH (10:33)
[2020-07-10] MEDS: THIAMINE HCL 100 MG TABLET (FP) PO SCH (23:48)
[2020-07-10] MEDS: MELATONIN 5 MG TABLETS PO SCH (23:48)
[2020-07-11] MEDS ORDERED: METHADONE HCL 5 MG TABLET (FOR DETOX USE ONLY) PO ONE (06:00)
[2020-07-11 09:44] VITALS: BP 131/81; PULSE 80; TEMP 97.1
[2020-07-11] MEDS: NICOTINE 14 MG/24 HOURS TOPICAL PATCH TD SCH (10:52)
[2020-07-11] MEDS: PRENATAL VITAMINS W/ FOLIC ACID TABLET (FP) PO SCH (10:53)
== END 2020-07-11 12:17 | disposition other institution (70) | DRG 773 ==
LOC: YASAS 18:20 → Y6N 22:22
PROVIDERS: ADMIT Allergy & Immunology; ATTEND Allergy & Immunology
PROC: HZ2ZZZZ Detoxification Services for Substance Abuse Treatment (ICD-10-PCS; principal; 2020-07-05)
DX: F11.23 Opioid dependence with withdrawal (principal); F10.230 Alcohol dependence with withdrawal, uncomplicated; F14.20 Cocaine dependence, uncomplicated; F17.210 Nicotine dependence, cigarettes, uncomplicated; E27.1 Primary adrenocortical insufficiency; T40.2X1A Poisoning by other opioids, accidental (unintentional), initial encounter; R40.4 Transient alteration of awareness; Y92.238 Other place in hospital as the place of occurrence of the external cause
CPT/HCPCS: 36415; 80053; 82728; 82962; 83550; 85027; 86780; 93005; 93010; C9803; U0003; U0005

== ENCOUNTER 2020-07-08 15:52 | Emergency (ER) | payer OTHER ==
[2020-07-08 18:35] VITALS: TEMP 98.2; BMI 24.3
[2020-07-09 00:20] VITALS: BP 125/86; PULSE 83
== END 2020-07-09 00:19 | disposition home or self-care (01) ==
LOC: JER 15:52
DX: T40.601A Poisoning by unspecified narcotics, accidental (unintentional), initial encounter (principal)
CPT/HCPCS: 70450-TC; 73523-TC-FY; 99284-25